=== PATIENT | female | born 1940 | race Caucasian/White ===

== ENCOUNTER 2019-12-11 11:14 | Outpatient (CLI) | payer MEDICARE, OTHER, SELFPAY ==
--- NOTE | ~2019-12-11 | US_ITS ---
EXAMINATION: US venous doppler [facility] EXAM DATE: 12/11/2019 11:52 INDICATION: Left leg edema. TECHNIQUE: Multiple grayscale, color flow and Doppler images of the left lower extremity deep venous system were obtained and reviewed. Comparison is made to prior examination from 04/19/2012. FINDINGS: The left common femoral, femoral and profunda veins demonstrate normal color flow, respirat ory variation, augmentation and compressibility. Compressibility, color flow confirmed within the le ft popliteal, posterior tibial, peroneal, and greater saphenous veins. IMPRESSION: 1. No left lower extremity deep venous thrombosis. Reviewed, dictated and finalized at location B. IED EXERCISE PHYSIOLOGIST
== END 2019-12-11 11:15 | disposition home or self-care (01) ==
LOC: ANHIMG 11:22
PROVIDERS: PCP Internal Medicine; Visit Provider Internal Medicine
DX: R60.0 Localized edema (principal)
CPT/HCPCS: 93971

== ENCOUNTER 2020-01-19 09:02 | Emergency (ER) | payer OTHER, MEDICARE, SELFPAY ==
[2020-01-19 09:20] VITALS: BP 129/81; PULSE 71; RESP 16; TEMP 36.5; O2SAT 99
--- NOTE | 2020-01-19 09:34 | ED.ANIMALBIT ---
HPI - Animal Bite General Chief Complaint: Animal Bite Stated Complaint: dog bite Time Seen by Provider: 01/19/20 09:35 Source: patient and RN notes reviewed History of Present Illness HPI narrative: Patient is a 79-year-old female that presents the urgent care with complaints of a dog bite to the right arm. Patient also has an abrasion to the forehead. Patient states that she was going on a walk this morning around 7:30 AM and was attacked by her neighbors mili kramer. Patient states that she is aware that this dog has had a vicious past. Dog was on a leash and being walked by a young girl. Patient states that it was reported. Denies any other wounds. No other acute complaints. No acute distress noted. Patient read the plan of care. Related Data Home Medications Medication Instructions Recorded Confirmed lansoprazole 01/19/20 levothyroxine [Synthroid] 01/19/20 triamcinolone acetonide TOPICAL 01/19/20 Allergies Allergy/AdvReac Type Severity Reaction Status Date / Time Penicillins Allergy Hives Verified 01/19/20 09:19 Review of Systems Review of Systems: Narrative: CONSTITUTIONAL: Denies fever, chills, or sweats. EYES: Denies visual changes, redness, or discharge. ENT: Denies rhinorrhea, congestion, sore throat, or otalgia. CARDIOVASCULAR: Denies chest pain, palpitations, or edema. RESPIRATORY: Denies cough or dyspnea. GASTROINTESTINAL: Denies abdominal pain, nausea, vomiting, or diarrhea. GENITOURINARY: Denies dysuria or hematuria. SKIN: Reports of a dog bite to the right arm. Denies rash or itching. MUSCULOSKELETAL: Denies back pain, joint pain, or myalgia. NEUROLOGIC: Denies headache, numbness, or weakness. All other systems reviewed are negative, except as documented in HPI. PMFSH Comments At the time of my signature, I reviewed and agree with the nursing past medical, surgical, social, and family history. There is no relevant family history pertinent to the patient complaint. Exam Narrative: Exam Narrative: GENERAL: This is a well-nourished, well-developed patient, in no apparent distress. HEAD: normocephalic, atraumatic. EYES: PERRL. Sclera clear/white. Vision is grossly intact. EARS: External ears normal NOSE: External nose normal with no obvious nasal discharge THROAT: Mucous membranes moist NECK: Neck supple, non-tender without lymphadenopathy, masses or thyromegaly. CARDIOVASCULAR: Regular rate and rhythm SKIN: Recent a meters wide and 2 cm in length circular flap laceration to the right lower arm. Abrasion to the forehead. Warm, intact with no suspicious lesions or rash, good texture and turgor. NEURO: awake, alert, and oriented to person, place and time. There were no obvious focal neurologic abnormalities. EXTREMITIES: No clubbing, cyanosis, or edema. Course Vital Signs Vital signs: Vital Signs Temperature 97.7 F 01/19/20 09:20 Pulse Rate 71 01/19/20 09:20 Respiratory Rate 16 01/19/20 09:20 Blood Pressure 129/81 01/19/20 09:20 Pulse Oximetry 99 01/19/20 09:20 Temperature 97.7 F 01/19/20 09:20 Pulse Rate 71 01/19/20 09:20 Respiratory Rate 16 01/19/20 09:20 Blood Pressure 129/81 01/19/20 09:20 Pulse Oximetry 99 01/19/20 09:20 Reviewed Procedures Laceration Laceration 1: Site: upper extremity (Arm) Side (If applicable): right Description: flap Pre-repair: irrigated ====== Skin Level ====== Skin layer closed with: steri strips ====== Subcutaneous Layer ====== ====== Muscle Layer ====== ====== Tendon Layer ====== Dressing: Wound cleansed and irrigated with [employer] and normal saline. Bleeding controlled. 3 cm width and 2 cm length circular flap to the right upper extremity/forearm. Steri-Strips placed. Patient tolerated well. MDM - Animal Bite MDM Narrative Medical decision making narrative: Advised the patient to not remove the Steri-Strips. May reinforce them or add new ones
--- NOTE | 2020-01-19 10:04 | PC.NURSE ---
Pt given Boostrix 0.5 mL in R deltoid. Pt provided Tdap vaccine information sheet dated 12/24/2014. Boostrix information Manufactured by [employer] Lot number [id number] expiration date 10/03/2020. Pt name, birthdate, and allergies verified with patient by this RN prior to giving medication.
== END 2020-01-19 10:20 | disposition home or self-care (01) ==
PROVIDERS: Emergency Provider Nurse Practitioner Family; PCP Internal Medicine
DX: S51.811A Laceration without foreign body of right forearm, initial encounter (principal); W54.0XXA Bitten by dog, initial encounter; Z23 Encounter for immunization
CPT/HCPCS: 90471; 90715; 99213; G0463

== ENCOUNTER 2021-03-09 07:39 | Outpatient (CLI) | payer MEDICARE, OTHER, SELFPAY ==
--- NOTE | ~2021-03-09 | DEXA_ITS ---
Bone Density Report Name: Karolina Lundberg Age: 80 Sex: Female Ethnicity: White Date of : 1940 Indication: osteopenia; height loss; Referring Provider: Palomo*Stiven Singh Study: Bone densitometry was performed. Exam Date: March 09, 2021 Accession number: [id number] Bone Density: Region BMD T-score Z-score Classification AP Spine (L1-L4) 1.081 0.3 3.0 Normal Femoral Neck (Left) 0.663 -1.7 0.7 Osteopenia Total Hip (Left) 0.783 -1.3 0.8 Osteopenia World Health Organization criteria for BMD impression classify patients as: Normal (T-score at or above -1.0), Osteopenia (T-score between -1.0 and -2.5), or Osteoporosis (T-score at or below -2.5). 10-year Fracture Risk(1): Major Osteoporotic Fracture 14% Hip Fracture 3.4% Reported Risk Factors: [place] (), Neck BMD=0.663, BMI=29.6 (1) FRAX(R) Version 3.08. Fracture probability calculated for an untreated patient. Fracture probability may be lower if the patient has received treatment. Previous Exams: Region Exam Age BMD T-score BMD Change BMD Change Date g/cm2 vs Baseline vs Previous AP Spine(L1-L4) 03/09/2021 80 1.081 0.3 0.113(11.7%)# 0.113(11.7%)# 03/08/2013 72 0.968 -0.7 Total Hip(Left) 03/09/2021 80 0.783 -1.3 0.015(1.9%)# 0.015(1.9%)# 03/08/2013 72 0.768 -1.4 *Denotes significance at 95% confidence level, LSC for AP Spine = 0.022 g/cm2, LSC for Total Hip = 0.027 g/cm2 Clinical Information Provided by Patient: Has used the following medications: Vitamin D, Calcium Patient maximum height was 67 Menopause Age: 52 Drinks caffeinated beverages Onset of menses at age 12 Number of children 1 Impression: The patient has low bone mass, based on the Left Femoral Neck T-score. The patient has an estimated ten-year risk of hip fracture of 3.4% and an estimated ten-year risk of major fracture of 14%, based on the WHO FRAX algorithm. No significant bone loss was observed. Discussion: BONE DENSITY IS LOW AT ONE OR MORE SKELETAL SITES. THE PATIENT'S BMD AND CLINICAL RISK FACTORS CONTRIBUTE TO THIS PATIENT'S INCREASED RISK OF FRACTURE. This patient's lowest T-score is low at one or more skeletal sites. It meets the World Health Organization's (WHO) criteria for ?low bone mass? (T-score between -1.0 and -2.5). The patient's 10-year risk of hip fracture as calculated by FRAX exceeds the threshold where pharmacological therapy is recommended by the National Osteoporosis Foundation (NOF). However, all treatment decisions require clinical judgment and
--- NOTE | ~2021-03-09 | MM_ITS ---
EXAMINATION: MM screening [facility] BI w dannielle HISTORY: Screening mammogram TECHNIQUE: Craniocaudal and mediolateral oblique 3-D tomosynthesis images were obtained and synthetic 2-D images were generated. CAD analysis was submitted and interpreted. COMPARISON: 05/31/2019, 05/26/2018, 05/24/2017 BREAST PARENCHYMAL COMPOSITION: There are scattered areas of fibroglandular density. FINDINGS: RIGHT BREAST: There is a possible mass in the posterior third of the outer breast best appreciated 8 cm from the nipple on the craniocaudal view. LEFT BREAST: There is no evidence of suspicious mass, calcification, or architectural distortion to s uggest malignancy. There has been no significant interval change. IMPRESSION: 1. Possible right breast mass. 2. Additional mammographic views and possible breast ultrasound are recommended. BI-RADS Category 0: Incomplete: Needs additional imaging evaluation. Reviewed, dictated and finalized at location A. IMPRESSION: 1. Possible right breast mass. 2. Additional mammographic views and possible breast ultrasound are recommended . BI-RADS Category 0: Incomplete: Needs additional imaging evaluation.
== END 2021-03-09 07:40 | disposition home or self-care (01) ==
LOC: ANHIMG 07:40
PROVIDERS: PCP Internal Medicine; Visit Provider Internal Medicine
DX: Z12.31 Encounter for screening mammogram for malignant neoplasm of breast (principal); Z78.0 Asymptomatic menopausal state; R92.8 Other abnormal and inconclusive findings on diagnostic imaging of breast; M85.852 Other specified disorders of bone density and structure, left thigh
CPT/HCPCS: 77063; 77067; 77080

== ENCOUNTER 2021-04-20 13:43 | Outpatient (CLI) | payer MEDICARE, OTHER, SELFPAY ==
--- NOTE | ~2021-04-20 | MMUS_ITS ---
EXAMINATION: MM diagnostic mammo unilat RT, US breast RT limited HISTORY: Possible right breast mass reported on 03/09/2021 screening mammogram TECHNIQUE: Additional 3-D tomosynthesis images of right breast were performed and synthetic 2-D image s were generated. CAD analysis was submitted and interpreted. High resolution upper outer and lower o uter right breast ultrasound was performed. COMPARISON: 03/09/2021 screening mammogram FINDINGS: MAMMOGRAPHIC FINDINGS: Approximately 6 mm lobular opacity is suggested the patient lower outer right breast. ULTRASOUND: No suspicious mass or shadowing is detected in the outer right breast sonographically. IMPRESSION: 1. Probably benign finding 2. Six month diagnostic right mammogram follow up is recommended, with ultrasound if required. BI-RADS category 3, probably benign findings. Reviewed, dictated and finalized at location A. IMPRESSION: 1. Probably benign finding 2. Six month diagnostic right mammogram follow up is recommended, with ultrasou nd if required. BI-RADS category 3, probably benign findings.
== END 2021-04-20 13:44 | disposition home or self-care (01) ==
PROVIDERS: PCP Internal Medicine; Visit Provider Internal Medicine
DX: R92.8 Other abnormal and inconclusive findings on diagnostic imaging of breast (principal)
CPT/HCPCS: 76642; 77065

== ENCOUNTER 2021-11-06 11:30 | Outpatient (CLI) | payer MEDICARE, OTHER, SELFPAY ==
--- NOTE | ~2021-11-06 | MM_ITS ---
EXAMINATION: MM diagnostic kristie RT w dannielle HISTORY: Six-month follow-up for probably benign right breast asymmetry TECHNIQUE: Craniocaudal, mediolateral, and mediolateral oblique 3-D tomosynthesis images of the right breast were performed and synthetic 2-D images were generated. CAD analysis was submitted and interp reted. COMPARISON: 04/20/2021, 03/09/2021, 05/31/2019,05/26/2018 BREAST PARENCHYMAL COMPOSITION: There are scattered areas of fibroglandular density. FINDINGS: There is a persistent asymmetry in the posterior third of the slightly inner breast at the 9:00 location 8 cm from the nipple. No suspicious calcification is identified. IMPRESSION: 1. Persistent asymmetry of the right breast. 2. Targeted right breast ultrasound is recommended. BI-RADS Category 0: Incomplete: Needs additional imaging evaluation. Reviewed, dictated and finalized at location A. SH MENDER
== END 2021-11-06 11:31 | disposition home or self-care (01) ==
LOC: ANHIMG 11:34
PROVIDERS: PCP Internal Medicine; Visit Provider Internal Medicine
DX: R92.8 Other abnormal and inconclusive findings on diagnostic imaging of breast (principal)
CPT/HCPCS: 77061; 77065; G0279

== ENCOUNTER 2021-11-10 13:31 | Outpatient (CLI) | payer MEDICARE, OTHER, SELFPAY ==
--- NOTE | ~2021-11-10 | US_ITS ---
US breast RT limited 11/10/2021 14:08 Indication: Right breast mass Procedure: High-resolution Limited ultrasound of the right breast Comparison: No prior studies for comparison. Findings: At 9:00, 8 cm from the nipple there is a 6 mm intramammary lymph node corresponding to the mammographic finding. No suspicious masses to suggest malignancy. Impression: 1: Benign intramammary lymph node of the right breast at 9:00, 8 cm from the nipple. No sonographic e vidence for malignancy. Routine yearly screening mammogram and regular clinical breast examination are recommended. BI-RADS CATEGORY 2 - BENIGN FINDINGS Reviewed, dictated and finalized at location A. TURNER Impression: 1: Benign intramammary lymph node of the right breast at 9:00, 8 cm from the ni pple. No sonographic evidence for malignancy. Routine yearly screening mammogram and regular clinical breast examination are recommended. BI-RADS CATEGORY 2 - BENIGN FINDINGS
== END 2021-11-10 13:32 | disposition home or self-care (01) ==
PROVIDERS: PCP Internal Medicine; Visit Provider Internal Medicine
DX: R92.8 Other abnormal and inconclusive findings on diagnostic imaging of breast (principal); R59.0 Localized enlarged lymph nodes
CPT/HCPCS: 76642

== ENCOUNTER 2023-06-02 07:49 | Outpatient (CLI) | payer MEDICARE, OTHER, SELFPAY | END 2023-06-02 07:50 | disposition home or self-care (01) | LOC: ANHAUDASC 07:51 | PROVIDERS: PCP Internal Medicine; Visit Provider Internal Medicine | DX: H91.91 Unspecified hearing loss, right ear (principal) | CPT/HCPCS: 99199 ==

== ENCOUNTER 2024-07-05 11:28 | Outpatient (CLI) | payer MEDICARE, OTHER, SELFPAY ==
--- NOTE | ~2024-07-05 | US_ITS ---
EXAMINATION:US venous doppler LE LT INDICATION:Left lower extremity pain TECHNIQUE: Multiple grayscale, color flow and Doppler images of the left lower extremity deep venous systems were obtained and reviewed. COMPARISON:Ultrasound dated 12/11/2019 FINDINGS: The common femoral, superficial femoral and popliteal veins demonstrate normal respiratory variation, augmentation and compressibility. Color flow is also seen within the posterior tibial, pe roneal, greater saphenous and profunda veins. IMPRESSION: 1: No lower extremity deep venous thrombosis. Reviewed, dictated and finalized at location B.
== END 2024-07-05 11:29 | disposition home or self-care (01) ==
PROVIDERS: PCP Internal Medicine; Visit Provider Internal Medicine
DX: M79.605 Pain in left leg (principal)
CPT/HCPCS: 93971